=== PATIENT | male | born 2000 | race Caucasian/White ===

== ENCOUNTER 2021-02-01 15:11 | Emergency (ER) | payer OTHER ==
[~2021-02-01] VITALS: Ht 172.7 cm; Wt 77.3 kg
[2021-02-01] MEDS ORDERED: DEBR6.5S4 AS (20:30)
[2021-02-01] MEDS ORDERED: VIGA0.02 AS (20:30)
[2021-02-01 20:44] VITALS: BP 153/86
== END 2021-02-01 20:45 | disposition home or self-care (01) ==
LOC: M ED 15:11
DX: H61.22 Impacted cerumen, left ear (principal)